=== PATIENT | male | born 1935 | race Caucasian/White ===

== ENCOUNTER 2024-06-16 17:38 | Inpatient (IN) | payer OTHER, BC ==
[2024-06-16 18:23] VITALS: BMI 26.2
[2024-06-16] MEDS ORDERED: ACETAMINOPHEN INJECTION 100 ML ONE (20:08)
[2024-06-16 20:36] LABS: BASO % 0.2 % (0-2.0); HEMOGLOBIN 10.3 GM/dL (11.7-16.9); LYMPH % 7.6 % (8-40); MCH 30.1 pg (25.7-33.7); MCHC 34.4 g/dl (32.0-35.9); MEAN CELL VOLUME 87.2 fl (80-96); MEAN PLT VOLUME 7.3 fl (7.5-11.1); MONO % 8.7 % (3.8-10.2); NEUT % 83.5 % (42.8-82.8); PLATELET COUNT 128 10^3/uL (134-434); RBC 3.44 M/mm3 (4.00-5.60); RDW 15.9 % (11.9-15.9); WHITE BLOOD COUNT 6.5 K/mm3 (4.0-10.0)
[2024-06-16] MEDS: ACETAMINOPHEN 1000 MG/100 ML BAG IVPB ONE (20:40)
[2024-06-16] MEDS: SODIUM CHLORIDE 0.9% 500 ML INFUS.BAG IV ONE ×2 (20:40→23:22)
[2024-06-16] MEDS ORDERED: PIPERACILLIN/TAZOB 4.5 GM 4.5 GM/100 ML BAG IVPB ONE (20:45)
[2024-06-16 20:50] LABS: VENOUS BASE EXCESS 2.2 mmol/L (-2-2); VENOUS O2 SATURATION 81.6 % (70-80); VENOUS PCO2 35.1 mmHg (38-52); VENOUS PH 7.48 (7.310-7.410)
[2024-06-16 20:54] LABS: POTASSIUM 3.6 mmol/L (3.5-5.1)
[2024-06-16] MEDS: PIPERACILLIN/TAZOB 4.5 GM 4.5 GM in DEXTROSE 5%-WATER 100 ML IVPB ONE (20:54)
[2024-06-16 20:59] LABS: ALBUMIN 2.6 g/dl (3.4-5.0); BLOOD UREA NITROGEN 17.1 mg/dL (7-18)
[2024-06-16 21:02] LABS: CREATININE 0.7 mg/dL (0.55-1.3)
[2024-06-16 21:03] LABS: BILIRUBIN,TOTAL 0.9 mg/dL (0.2-1); TOT PROT 5.8 g/dl (6.4-8.2)
[2024-06-16] MEDS ORDERED: AZITHROMYCIN IVPB 500 MG/250 ML BAG IVPB ONE (21:16)
[2024-06-16] MEDS: AZITHROMYCIN IVPB 500 MG in DEXTROSE 5%-WATER - 250 ML IVPB ONE (21:23)
[2024-06-16 22:29] LABS: INR 1.38 (0.83-1.09); PROTHROMBIN TIME (PATIENT) 15.7 SEC (9.7-13.0)
[2024-06-16 22:32] LABS: ACTIVATED PTT 29.5 SECONDS (25.2-36.5)
[2024-06-16] MEDS ORDERED: VANCOMYCIN/WATER 1250 MG 1,250 MG/250 ML BAG IVPB ONE (22:34)
[2024-06-16] MEDS: VANCOMYCIN/WATER 1250 MG 1,250 MG/250 ML BAG IVPB ONE (23:05)
[2024-06-17] MEDS: LACTATED RINGERS SOLUTION 1000 ML INFUS.BAG IV ONE ×2 (00:22→01:17)
[2024-06-17] MEDS: SODIUM CHLORIDE 1,000 ML IV SCH (02:33)
[2024-06-17] MEDS ORDERED: SENNOSIDES 8.6MG TABLET (FP) PO PRN (04:24)
[2024-06-17] MEDS: PIPERACILLIN/TAZOB 4.5 GM 4.5 GM/100 ML BAG IVPB SCH (04:26)
[2024-06-17 08:49] LABS: BASO % 0.1 % (0-2.0); EOS % 0.1 % (0-4.5); HEMATOCRIT 29.3 % (35.4-49); HEMOGLOBIN 9.8 GM/dL (11.7-16.9); MCHC 33.7 g/dl (32.0-35.9); MEAN CELL VOLUME 89.1 fl (80-96); MEAN PLT VOLUME 7.5 fl (7.5-11.1); MONO % 8.2 % (3.8-10.2); NEUT % 78.6 % (42.8-82.8); PLATELET COUNT 107 10^3/uL (134-434); RBC 3.28 M/mm3 (4.00-5.60); RDW 15.7 % (11.9-15.9)
[2024-06-17] MEDS: ACETAMINOPHEN 325 MG TABLET (FP) PO PRN (09:36)
[2024-06-17] MEDS: DORZOLAMIDE HCL/TIMOLOL OPHTHALMIC SOLUTION 10 ML BOTTLE OD SCH (09:36)
[2024-06-17] MEDS: MIDODRINE HCL 2.5 MG TABLET PO SCH (09:36)
[2024-06-17] MEDS: FINASTERIDE 5 MG TABLET (FP) PO SCH (09:36)
[2024-06-17] MEDS: MULTIVITAMINS (DAILY MVI) TABLET (FP) PO SCH (09:36)
[2024-06-17] MEDS: MEMANTINE HCL 5 MG TABLET (UD) PO SCH (09:36)
[2024-06-17] MEDS: ESCITALOPRAM OXALATE 10 MG TABLET PO SCH (09:36)
[2024-06-17] MEDS ORDERED: MIDODRINE HCL 5 MG TABLET PO SCH (10:00)
[2024-06-17 10:25] LABS: ALBUMIN 2.3 g/dl (3.4-5.0); BLOOD UREA NITROGEN 15.5 mg/dL (7-18); CALCIUM 7.9 mg/dL (8.5-10.1); CREATININE 0.6 mg/dL (0.55-1.3); POTASSIUM 3.3 mmol/L (3.5-5.1); TOT PROT 5.3 g/dl (6.4-8.2)
[2024-06-17] MEDS ORDERED: VANCOMYCIN/WATER 1250 MG 1,250 MG/250 ML BAG IVPB SCH (11:00)
[2024-06-17] MEDS: POTASSIUM CHLORIDE ORAL LIQUID 20 MEQ/15 ML PO ONE (12:37)
[2024-06-17] MEDS: VANCOMYCIN/WATER 1250 MG 1,250 MG/250 ML BAG IVPB SCH (12:37)
[2024-06-17 13:33] LABS: EPI CELLS 2 /uL (0-25.1); HYALINE CASTS 55 /uL (0-3.1); PH,URINE 5.5 (5.0-8.0); URINE APPEARANCE TURBID; URINE BILIRUBIN NEGATIVE (NEGATIVE); URINE COLOR DK YELLOW; URINE GLUCOSE (UA) NEGATIVE (NEGATIVE); URINE KETONE NEGATIVE (NEGATIVE); URINE LEUK ESTERASE 3+ (NEGATIVE); URINE NITRITE POSITIVE (NEGATIVE); URINE PROTEIN 1+ (NEGATIVE); URINE RBC 159 /uL (0-23.9); URINE WBC 643 /uL (0-25.8)
[2024-06-17 14:32] LABS: URINE BACTERIA 7087 /uL (0-1359); URINE CRYSTALS NONE SEEN /hpf
[2024-06-17] MEDS: PIPERACILLIN/TAZOB 3.375 GM 50 ML IVPB SCH (17:08)
[2024-06-17] MEDS: ATORVASTATIN CA 40 MG TABLET (FP) PO SCH (22:34)
[2024-06-18] MEDS ORDERED: PIPERACILLIN/TAZOB 4.5 GM 4.5 GM/100 ML BAG IVPB SCH (03:00)
[2024-06-18 08:39] LABS: BASO % 0.2 % (0-2.0); EOS % 0.1 % (0-4.5); HEMATOCRIT 27.2 % (35.4-49); HEMOGLOBIN 9.2 GM/dL (11.7-16.9); LYMPH % 16.8 % (8-40); MCH 29.7 pg (25.7-33.7); MCHC 33.9 g/dl (32.0-35.9); MEAN CELL VOLUME 87.6 fl (80-96); MEAN PLT VOLUME 7.5 fl (7.5-11.1); MONO % 7.4 % (3.8-10.2); NEUT % 75.5 % (42.8-82.8); PLATELET COUNT 146 10^3/uL (134-434); RBC 3.11 M/mm3 (4.00-5.60); RDW 16.2 % (11.9-15.9); WHITE BLOOD COUNT 6.2 K/mm3 (4.0-10.0)
[2024-06-18 08:55] LABS: POTASSIUM 4.1 mmol/L (3.5-5.1)
[2024-06-18 09:04] LABS: CALCIUM 7.8 mg/dL (8.5-10.1)
[2024-06-18 09:06] LABS: BLOOD UREA NITROGEN 13.4 mg/dL (7-18)
[2024-06-18 09:07] LABS: CREATININE 0.7 mg/dL (0.55-1.3)
[2024-06-18 09:09] LABS: TOT PROT 4.9 g/dl (6.4-8.2)
[2024-06-18] MEDS: METOPROLOL TARTRATE 25 MG TABLET (FP) PO SCH (12:32)
[2024-06-20 03:54] VITALS: RESP 20
[2024-06-20 07:34] VITALS: BP 130/96; PULSE 67; TEMP 98.7
[2024-06-20] MEDS: CEFAZOLIN 1 GM in DEXTROSE 5%-WATER - 50 ML IVPB SCH (10:43)
[2024-06-20] MEDS: ENOXAPARIN NA (PORCINE) 80 MG/0.8 ML DISP.SYRIN SQ SCH (14:40)
[2024-06-20 15:37] LABS: BASO % 0.3 % (0-2.0); EOS % 1.4 % (0-4.5); HEMATOCRIT 31.8 % (35.4-49); HEMOGLOBIN 10.6 GM/dL (11.7-16.9); LYMPH % 27.6 % (8-40); MCH 29.7 pg (25.7-33.7); MCHC 33.4 g/dl (32.0-35.9); MONO % 8.4 % (3.8-10.2); NEUT % 62.3 % (42.8-82.8); PLATELET COUNT 233 10^3/uL (134-434); RBC 3.58 M/mm3 (4.00-5.60); RDW 15.7 % (11.9-15.9); WHITE BLOOD COUNT 5.6 K/mm3 (4.0-10.0)
[2024-06-20 18:38] LABS: ANISOCYTOSIS 1+; MACROCYTOSIS 0
== END 2024-06-20 19:38 | DRG 194 ==
LOC: JER 17:38 → JERBED 21:35 → J4W 06-17 03:34
PROVIDERS: ADMIT Family Medicine; ATTEND Family Medicine
PROC: 05HY33Z Insertion of Infusion Device into Upper Vein, Percutaneous Approach (ICD-10-PCS; principal; 2024-06-20)
DX: J18.9 Pneumonia, unspecified organism (principal); I47.10 Supraventricular tachycardia, unspecified; S42.202A Unspecified fracture of upper end of left humerus, initial encounter for closed fracture; R78.81 Bacteremia; R55 Syncope and collapse; F03.90 Unspecified dementia, unspecified severity, without behavioral disturbance, psychotic disturbance, mood disturbance, and anxiety; W19.XXXA Unspecified fall, initial encounter; Y93.9 Activity, unspecified; Y92.89 Other specified places as the place of occurrence of the external cause; Y99.9 Unspecified external cause status; D69.6 Thrombocytopenia, unspecified
CPT/HCPCS: 0241U-QW; 36415; 36569; 70450-TC; 71045-TC-FY; 71250-TC; 72125-TC; 72170-TC-FY; 73030-TC-LT-FY; 73060-TC-LT-FY; 73070-TC-LT-FY; 73090-TC-LT-FY; 73110-TC-LT-FY; 73130-TC-LT-FY; 74176-TC; 76604; 76705-TC; 80053; 80061; 81003; 82728; 82803; 83036; 83540; 83550; 83605; 84443; 84466; 84484; 85025; 85610; 85730; 86850; 86900; 86901; 87040; 87086; 87186; 87899; 93005; 93010; 93306-TC; 93308; 93971; 97116-GP; 97162-GP; 99285-25; J0131